=== PATIENT | male | born 2000 | race Caucasian/White ===

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

== ENCOUNTER 2024-06-24 06:15 | Emergency (ER) | payer OTHER ==
[2024-06-24 06:28] VITALS: BP 115/75; PULSE 85; RESP 17; TEMP 98; BMI 37.3
[2024-06-24] MEDS ORDERED: AMOX TR/POT CLAV 875MG/125MG TABLETS (FP) ONE (06:42)
[2024-06-24] MEDS: AMOX TR/POT CLAV 875MG/125MG TABLETS (FP) PO ONE (06:45)
== END 2024-06-24 06:54 | disposition home or self-care (01) ==
LOC: FER 06:15
DX: S61.431A Puncture wound without foreign body of right hand, initial encounter (principal); W55.01XA Bitten by cat, initial encounter
CPT/HCPCS: 99283-25